=== PATIENT | male | born 1975 | race Caucasian/White ===

== ENCOUNTER 2024-11-14 08:05 | Inpatient (IN) | payer SELFPAY ==
[~2024-11-14] VITALS: Ht 180.3 cm; Wt 93.0 kg
[2024-11-14 09:33] LABS: BASOPHILS % 0.3 % (0.0-2.0); EOSINOPHILS % 0.7 % (0.0-5.0); HEMATOCRIT. 40.3 % (42.0-52.0); HEMOGLOBIN. 13.7 g/dL (14.0-18.0); MEAN CORPUSCULAR HEMOGLOBIN 30.4 pg (28.0-32.0); MEAN CORPUSCULAR VOLUME 89.4 fL (80.0-94.0); MEAN PLATELET VOLUME 7.5 fl (7.4-10.4); MONOCYTES % 7.7 % (2.0-8.0); NEUTROPHILS % 72.3 % (40.0-76.0); PLATELET 224 x1000/uL (130-400); RED BLOOD CELL COUNT 4.51 mill/uL (4.7-6.1); RED CELL DISTRIBUTION WIDTH 14.1 % (11.6-14.6); WHITE BLOOD COUNT 8.1 x1000/uL (4.5-11.0)
[2024-11-14 09:44] LABS: CHLORIDE 114 mEq/L (98-107); POTASSIUM 3.3 mEq/L (3.5-5.1); SODIUM 146 mEq/L (136-145)
[2024-11-14 09:45] LABS: CALCIUM 9.4 mg/dL (8.7-10.4); CARBON DIOXIDE 22 mEq/L (21-32)
[2024-11-14 09:50] LABS: CREATININE 0.6 mg/dL (0.6-1.3); ETHANOL BLOOD 298 mg/dL (<10); GLUCOSE 131 mg/dL (70-105); UREA NITROGEN BLOOD 9 mg/dL (9-23)
[2024-11-14 09:53] LABS: TROPONIN I HIGH SENSITIVITY < 4 ng/L (3.0-53)
[2024-11-14] MEDS ORDERED: IPRATROPIUM/ALBUTEROL 0.5-3(2.5)MG/3ML NEB HHN PRN (13:45)
[2024-11-14] MEDS ORDERED: DEXTROSE 50% WATER 50ML SYRINGE IV PRN (13:45)
[2024-11-14] MEDS ORDERED: DOCUSATE SODIUM 100MG CAPSULE PO PRN (13:45)
[2024-11-14] MEDS ORDERED: LORAZEPAM 0.5MG TABLET PO PRN (13:45)
[2024-11-14] MEDS ORDERED: ACETAMINOPHEN 325MG TABLET PO PRN ×2 (13:45)
[2024-11-14] MEDS ORDERED: CLONIDINE 0.1MG TABLET PO PRN (13:45)
[2024-11-14] MEDS ORDERED: GUAIFENESIN 200MG/10ML SUGAR FREE UDC PO PRN (13:45)
[2024-11-14] MEDS ORDERED: ONDANSETRON HCL 4MG/2ML INJ IV PRN (13:45)
[2024-11-14 15:36] LABS: TRIGLYCERIDE 48 mg/dL (0-150)
[2024-11-14 15:37] LABS: LDL CHOLESTEROL 73 mg/dL (5-100)
[2024-11-14 15:38] LABS: ALANINE AMINOTRANSFERASE 18 IU/L (10-49); ALBUMIN 4.2 g/dL (3.2-4.8); ASPARTATE AMINOTRANSFERASE 21 IU/L (<34); BILIRUBIN DIRECT < 0.1 mg/dL (<=3.0); CHOLESTEROL 144 mg/dL (<200); HDL CHOLESTEROL 58 mg/dL (>55); PHOSPHORUS 2.7 mg/dL (2.5-4.9)
[2024-11-14 15:39] LABS: BILIRUBIN TOTAL 0.2 mg/dL (0.1-1.0); PROTEIN TOTAL 7.7 g/dL (6.0-8.3)
[2024-11-14] MEDS: KCL 20MEQ/100ML PREMIX 100 ML IV NR (15:49)
[2024-11-14 15:52] LABS: VITAMIN B12 SERUM 323 pg/mL (211-911)
[2024-11-14 15:55] LABS: FOLIC ACID (FOLATE) SERUM 17.19 ng/mL (>5.38)
[2024-11-14] MEDS: MVI, ADULT NO.1 10 ML, FOLIC ACID 1 MG, THIAMINE HCL 100 MG in SODIUM CHLORIDE 0.9% 1,0... IV NR (15:59)
[2024-11-14 16:59] VITALS: BP 110/52; PULSE 86; RESP 18; TEMP 37.2; O2SAT 99
[2024-11-14] MEDS: BLOOD SUGAR DIAGNOSTIC STRIP TEST SCH (17:32)
[2024-11-14] MEDS: INSULIN LISPRO 100 UNITS/ML SUBCUT SCH (17:33)
[2024-11-14 17:34] VITALS: BP 110/52; PULSE 86; RESP 18; TEMP 37.3
[2024-11-14 20:00] VITALS: BP 110/52; PULSE 86; RESP 22; TEMP 36.8; O2SAT 95
[2024-11-14 20:01] LABS: CLARITY URINE CLEAR (CLEAR); COLOR URINE YELLOW (YELLOW); GLUCOSE URINE NEGATIVE (NEGATIVE); KETONES URINE NEGATIVE (NEGATIVE); LEUKOCYTE ESTERASE URINE NEGATIVE (NEGATIVE); NITRITE URINE NEGATIVE (NEGATIVE); OCCULT BLOOD URINE TRACE (NEGATIVE); PROTEIN URINE NEGATIVE (NEGATIVE); UROBILINOGEN URINE 0.2 E.U./dL (0.2-1.0)
[2024-11-14 20:17] LABS: *AMPHETAMINES SCREEN URINE NEGATIVE (NEGATIVE); *BARBITURATES SCREEN URINE NEGATIVE (NEGATIVE); *BENZODIAZEPINES SCREEN URINE NEGATIVE (NEGATIVE); *COCAINE SCREEN URINE NEGATIVE (NEGATIVE)
[2024-11-14 20:18] LABS: CANNABINOID URINE SCREEN PRESUMPTIVE POSITIVE (NEGATIVE); METHADONE URINE SCREEN NEGATIVE (NEGATIVE); OPIATES URINE SCREEN NEGATIVE (NEGATIVE); PHENCYCLIDINE URINE SCREEN NEGATIVE (NEGATIVE)
[2024-11-14 20:19] LABS: ECSTASY MDMA SCREEN URINE NEGATIVE (NEGATIVE)
[2024-11-14 20:32] LABS: RBC URINE NONE SEEN /hpf (0-2); SQUAMOUS EPITHELIAL CELL URINE NONE SEEN /lpf (RARE/1+); WBC URINE 0-2 /hpf (0-2)
[2024-11-14 20:33] LABS: BACTERIA URINE TRACE
[2024-11-14] MEDS: ENOXAPARIN 40MG/0.4ML SYR SUBCUT SCH (20:48)
[2024-11-15] VITALS: BP 108/51; PULSE 91; RESP 18; TEMP 36.6; O2SAT 96
[2024-11-15 01:12] LABS: CREATINE KINASE 427 IU/L (46-171)
[2024-11-15 01:18] LABS: TROPONIN I HIGH SENSITIVITY < 4 ng/L (3.0-53)
[2024-11-15 04:00] VITALS: BP 111/55; PULSE 88; RESP 20; TEMP 35.9; O2SAT 98
[2024-11-15 06:48] LABS: BASOPHILS % 0.6 % (0.0-2.0); EOSINOPHILS % 6.7 % (0.0-5.0); HEMOGLOBIN. 12.8 g/dL (14.0-18.0); LYMPHOCYTES % 30.2 % (20.0-50.0); MEAN CORPUSCULAR HEMOGLOBIN 29.9 pg (28.0-32.0); MEAN CORPUSCULAR HGB CONC 33.8 g/dL (31.0-37.0); MEAN CORPUSCULAR VOLUME 88.5 fL (80.0-94.0); MONOCYTES % 10.2 % (2.0-8.0); NEUTROPHILS % 52.3 % (40.0-76.0); PLATELET 188 x1000/uL (130-400); RED BLOOD CELL COUNT 4.29 mill/uL (4.7-6.1); RED CELL DISTRIBUTION WIDTH 13.5 % (11.6-14.6); WHITE BLOOD COUNT 8.7 x1000/uL (4.5-11.0)
[2024-11-15 08:00] VITALS: BP 132/76; PULSE 92; RESP 18; TEMP 36.3; O2SAT 97
[2024-11-15] MEDS ORDERED: MVI, ADULT NO.1 10 ML, FOLIC ACID 1 MG, THIAMINE HCL 100 MG in SODIUM CHLORIDE 0.9% 1,0... IV ONE (11:30)
[2024-11-15 11:40] VITALS: BP 132/76; PULSE 92; TEMP 97.6; O2SAT 97
== END 2024-11-15 13:46 | disposition home or self-care (01) | DRG 52 ==
LOC: ER 08:05 → 8WST 12:04 → EDBEDREQ 12:19 → EDBEDREQTM 12:19
PROVIDERS: ADMIT Internal Medicine; ATTEND Internal Medicine
DX: G92.8 Other toxic encephalopathy (principal); E87.0 Hyperosmolality and hypernatremia; E87.6 Hypokalemia; E86.0 Dehydration; Y90.8 Blood alcohol level of 240 mg/100 ml or more; R73.9 Hyperglycemia, unspecified; F10.929 Alcohol use, unspecified with intoxication, unspecified; Z59.00 Homelessness unspecified; Z79.899 Other long term (current) drug therapy
CPT/HCPCS: 36415; 71045; 80048; 80061; 80076; 80305; 80320; 81003; 82550; 82607; 82746; 82962; 83036; 83735; 84100; 84484; 85025; 93005; 93970; 99285; J1650; J3411; J3480; J3490; J7030; G0480